=== PATIENT | female | born 1995 | race Caucasian/White ===

== ENCOUNTER → 2017-03-09 | Emergency (ER) | payer OTHER ==
[~2017-03-09] VITALS: Ht 157.5 cm; Wt 56.7 kg
[~2017-03-09] MED LIST: AMBIEN5 MG PO; IBUPROFEN400 MG PO; LAMICTAL XR50 MG PO; NORCO 5-325 TA1 EACH PO; PAROXETINE CR25 MG PO; TAMIFLU75 MG PO; TYLENOL325 MG PO; ZOFRAN ODT4 MG PO
--- NOTE | 2017-03-10 22:59 | EKG ---
[facility] [address] [place], [place] [address] Signed Sinus tachycardia Otherwise normal ECG When compared with ECG of 09-MAR-2017 21:33, (Unconfirmed) Previous ECG has undetermined rhythm, needs review Confirmed by FRANCES BEY MD ([id number] on 03/10/2017 10:59:15 PM Electronically Signed By: FRANCES BEY MD 03/10/17 2259 PATIENT NAME: LISSETH JOHN Electrocardiogram DATE OF : [birth year] PHYSICIAN: FRANCES BEY MD REPORT #: [id number] REPORT IS CONFIDENTIAL AND NOT TO BE RELEASED WITHOUT AUTHORIZATION
== END ==
LOC: ED 19:42
DX: J10.1 Influenza due to other identified influenza virus with other respiratory manifestations (principal); Z98.51 Tubal ligation status; Z79.899 Other long term (current) drug therapy
CPT/HCPCS: 71010; 80053; 81001; 83605; 85025; 87040; 87081; 87088; 87502; 87880; 93005; 93010; 96361; 96374; 96375; 99283; J1885; J2405; J7030

== ENCOUNTER 2017-08-11 13:30 | Emergency (ER) | payer OTHER ==
[~2017-08-11] VITALS: Ht 157.5 cm; Wt 54.4 kg
== END 2017-08-11 13:41 | disposition home or self-care (01) ==
LOC: ED 13:30
DX: R06.02 Shortness of breath (principal); R05 Cough

== ENCOUNTER 2017-09-14 10:46 | Emergency (ER) | payer OTHER ==
[~2017-09-14] VITALS: Ht 157.5 cm; Wt 54.4 kg
--- NOTE | 2017-09-14 14:13 | EKG ---
[facility] [address] [facility] [place], [place] [address] Signed Normal sinus rhythm Normal ECG When compared with ECG of 09-MAR-2017 21:37, No significant change was found Confirmed by RAMONA FERREIRA MD ([id number] on 09/14/2017 2:12:50 PM Electronically Signed By: RAMONA FERREIRA MD 09/14/17 1413 PATIENT NAME: LISSETH JOHN Electrocardiogram DATE OF : [birth year] PHYSICIAN: RAMONA FERREIRA MD REPORT #: [id number] REPORT IS CONFIDENTIAL AND NOT TO BE RELEASED WITHOUT AUTHORIZATION
== END 2017-09-14 12:22 | disposition home or self-care (01) ==
LOC: ED 10:46
DX: R07.89 Other chest pain (principal); R07.81 Pleurodynia; F17.200 Nicotine dependence, unspecified, uncomplicated; Z88.5 Allergy status to narcotic agent
CPT/HCPCS: 71046; 93005; 93010; 99284